=== PATIENT | female | born 1965 | race Caucasian/White ===

== ENCOUNTER → 2017-01-09 | Outpatient (CLI) | payer MEDICARE, BC ==
[~2017-01-09] MED LIST: ASPIRINEC PO; LORTAB 5/500 TA1 TA1 PO; OMEPRAZOLE40 MG; PRILOSEC PO; PROTONIX PO; TYLENOL325 M1 PO; ULTRAM PO
--- NOTE | ~2017-01-09 | US85 ---
[facility] A Service of [facility] [place] RADIOLOGY TEXT RESULTS PATIENT: HESHAM PEREIRA LOCATION: SNIV : 61 UNIT #: [id number] AGE: [address]: Rocael Lisa MD SEX: F ORDER DR: [id number] [address] [id number] O MR#: [id number] Acc #: [id number] NAME: HESHAM PEREIRA : 1965 SEX: F STUDY DATE/TIME: 01/09/2017 8:26 UNIT: SNIV ROOM: STUDY DESCRIPTION: [facility] Method CRM or [facility] Attending Physician: Rocael Lisa M.D. Referring Physician: Rocael Lisa M.D. Ordering Physician: Rocael Lisa M.D. Primary Care Physician: Rocael Lisa M.D. MEDICAL IMAGING REPORT This report is preliminary unless electronic signature is present. EXAM Left leg vein Doppler, 01/09. INDICATIONS Left leg swelling for 1 week. Prior history of DVT in the left leg in 2012. FINDINGS TECHNIQUE Venous ultrasound examination of the left lower extremity was performed using grayscale, spectral Doppler and color flow Doppler imaging. FINDINGS The examination is negative. There is no evidence of left lower extremity deep venous thrombus from the groin to the lower calf. Visualized greater saphenous vein is also patent. IMPRESSION Negative examination. No evidence of left lower extremity deep venous thrombosis. Dictated by... Alberto Solares Jr., M.D. THIS IS AN ELECTRONICALLY VERIFIED REPORT Alberto Solares Jr., M.D. at 01/10/2017 5:04 PM ARNIE/sandra TD: 01/10/2017 12:22 JOB #: [id number] [facility] A Service [facility] RADIOLOGY TEXT RESULTS PATIENT: HESHAM PEREIRA LOCATION: SNIV : 61 UNIT #: [id number] AGE: [address]: Rocael Lisa MD SEX: F ORDER DR: MEDICAL IMAGING REPORT Page 1 of 1
== END | disposition home or self-care (01) ==
LOC: SNIV 07:52
DX: M79.605 Pain in left leg (principal)
CPT/HCPCS: 93971